=== PATIENT | female | born 2000 | race Hispanic/Latino ===

== ENCOUNTER 2022-01-08 15:42 | Outpatient (CLI) | payer BC | END 2022-01-08 15:43 | disposition home or self-care (01) | LOC: CSHULT 15:42 | PROVIDERS: ATTEND Otolaryngology Plastic Surgery within the Head & Neck | DX: E04.1 Nontoxic single thyroid nodule (principal) | CPT/HCPCS: 76536 ==

== ENCOUNTER 2023-06-22 15:16 | Outpatient (CLI) | payer BC | END 2023-06-22 15:17 | disposition home or self-care (01) | LOC: CSHULT 15:16 | PROVIDERS: ATTEND Otolaryngology Plastic Surgery within the Head & Neck | DX: E04.2 Nontoxic multinodular goiter (principal) | CPT/HCPCS: 76536 ==

== ENCOUNTER 2024-06-07 11:44 | Outpatient (CLI) | payer BC | END 2024-06-07 11:45 | disposition home or self-care (01) | LOC: CSHULT 11:44 | PROVIDERS: ATTEND Otolaryngology Plastic Surgery within the Head & Neck | DX: E04.2 Nontoxic multinodular goiter (principal) | CPT/HCPCS: 76536 ==